=== PATIENT | male | born 1980 | race Caucasian/White ===

== ENCOUNTER 2018-12-05 19:21 | Emergency (ER) | payer MEDICAID ==
[2018-12-05 19:32] VITALS: BP 177/111
[2018-12-05] MEDS ORDERED: TETANUS/DIPHTHERIA/PERTUSSIS 0.5 ML SYRINGE IM ONE (20:23)
[2018-12-05] MEDS ORDERED: BUFFERED LIDOCAINE 10 ML SYRINGE SUBQ STA (20:23)
[2018-12-05] MEDS ORDERED: LIDOCAINE 2% 10 ML MDV ONE (20:33)
--- NOTE | 2018-12-05 20:55 | ED Physician Documentation ---
PD HPI UPPER EXT INJURY - Stated complaint Stated Complaint: FINGER LAC - Chief complaint Chief Complaint: Laceration - History obtained from History obtained from: Patient - History of Present Illness Location: Right, Finger Type of injury: Laceration Where injury occurred: Home Timing - onset: Today Timing - details: Abrupt onset Severity Comments: moderate Improved by: Immobilization. No: Rest, Ice Worsened by: Moving, Palpating Associated symptoms: No: Weakness, Numbness, Tingling, Swelling Contributing factors: No: Anticoagulated, Prior ortho surgery Similar symptoms before: No diagnosis Recently seen: Not recently seen Review of Systems Constitutional: denies: Fever Eyes: denies: Loss of vision, Discharge Ears: denies: Ear pain Nose: denies: Rhinorrhea / runny nose Throat: denies: Sore throat Skin: reports: Laceration (s) Musculoskeletal: reports: Extremity pain Neurologic: denies: Generalized weakness, Focal weakness, Numbness Immunocompromised: denies: Chemotherapy PD PAST MEDICAL HISTORY - Past Medical History Past Medical History: Yes Cardiovascular: None Respiratory: Pneumonia Neuro: None Endocrine/Autoimmune: None GI: None : Kidney stones HEENT: None Psych: Depression, Anxiety, Bipolar disorder Musculoskeletal: None Derm: None - Past Surgical History Past Surgical History: Yes General: Appendectomy Ortho: Spine surgery - Present Medications Home Medications: Ambulatory Orders Medication Instructions Recorded Confirmed Alprazolam [Xanax] 0.5 mg PO DAILY 10/27/16 10/27/16 Nortriptyline HCl 10 mg PO DAILY 10/27/16 10/27/16 diazePAM [Valium] 5 mg PO DAILY 10/27/16 10/27/16 - Allergies Allergies/Adverse Reactions: Allergies Allergy/AdvReac Type Severity Reaction Status Date / Time fluoxetine HCl * Allergy suicidal Verified 07/25/15 09:17 [From Prozac] - Social History Does the pt smoke?: Yes Smoking Status: Current every day smoker Does the pt drink ETOH?: Yes ETOH Use: Liquor Does the pt have substance abuse?: No - Immunizations Immunizations are current?: No - POLST Patient has POLST: No PD ED PE NORMAL - General General: Alert and oriented X 3, No acute distress - HEENT HEENT: Atraumatic, PERRL, EOMI, Ears normal - Neck Neck: Supple, no meningeal sign - Derm Derm: Other (3 cm laceration on the right volar ring finger) - Extremities Extremities: Normal ROM s pain. No: No tenderness to palpate (The patient has a 3 cm linear laceration on the volar ring finger, there is no foreign body on examination in the wound appears to be superficial only into the subcutaneous space. On exploration of the I do not see evidence of a tendon laceration and on physical exam the patient has normal sensation and full active range of motion of the finger in both extension and flexion.The patient has no bony tenderness), No edema - Neuro Neuro: Alert and oriented X 3, No motor deficit, Normal speech - Psych Psych: Normal affect Results - Vitals Vitals: Vital Signs - 24 hr 12/05/18 19:26 Temperature 35.6 C L Heart Rate 81 Respiratory 18 Rate Blood Pressure 177/111 H O2 Saturation 95 Oxygen O2 Source Room air Procedures - Laceration (location) Finger right Length in cm: 3 Wound type: Linear Neurovascular status: Sensory intact, Motor intact, Vascular intact Tendon involvement: Tendon intact, Tendon Injury Anesthesia: Lidocaine 2% Wound Preparation: Betadine, Irrigated copiously NS, Wound explored, To the base. No: FB identified, FB removed Skin layer closure: Nylon, Interrupted, Size #-0 - enter number (4) Other: Patient tolerated well, No complications, Neurovascular intact, Dressing applied, Tetanus UTD Complexity: Simple PD MEDICAL DECISION MAKING - ED course ED course: The wound was closed using sutures, there is no evidence of a foreign body or tendon injury on examination. I advised the patient have the sutures removed in 7-10 days I discussed warning signs for infection and advised returning for any worsening or any concerns. Departure - Departure Disposition: 01 Home, Self Care Clinical Impression: Finger laceration Qualifiers: Encounter type: initial encounter Finger: unspecified finger Damage to nail status: without damage Foreign body presence: without foreign body Laterality: unspecified laterality Qualified Code(s): S61.219A - Laceration without foreign body of unspecified finger without damage to nail, initial encounter Condition: Good Instructions: ED Laceration Hand, ED Laceration All Follow-Up: Steffany Butler MD [Primary Care Provider] - Within 1 week (Please have your sutures removed in 7-10 days) Comments: Please return to the emergency department for worsening symptoms or any concerns
[2018-12-05] MEDS ORDERED: BACITRACIN OINT TOP ONE (20:57)
== END 2018-12-05 21:05 | disposition home or self-care (01) ==
LOC: ED 19:21
DX: S61.214A Laceration without foreign body of right ring finger without damage to nail, initial encounter (principal); W26.8XXA Contact with other sharp object(s), not elsewhere classified, initial encounter; Y92.007 Garden or yard of unspecified non-institutional (private) residence as the place of occurrence of the external cause; Z23 Encounter for immunization; F17.200 Nicotine dependence, unspecified, uncomplicated
CPT/HCPCS: 12002; 90471; 90715; 99282; 99283; A9270